=== PATIENT | male | born 1960 | race Caucasian/White ===

== ENCOUNTER 2021-04-05 17:36 | Emergency (ER) | payer OTHER ==
[~2021-04-05] VITALS: Ht 175.3 cm; Wt 86.6 kg
[2021-04-05 19:02] LABS: ABSOLUTE BASOPHILS 0.1 thou/uL (0.0-0.2); ABSOLUTE EOSINOPHILS 0.5 thou/uL (0.0-0.7); ABSOLUTE LYMPHOCYTES 1.7 thou/uL (0.8-5.3); ABSOLUTE MONOCYTES 0.5 thou/uL (0.0-1.2); ABSOLUTE NEUTROPHILS 4.8 thou/uL (1.6-8.1); BASOPHILS 1.3 %; EOSINOPHILS 6.8 %; HEMATOCRIT 41.7 % (42.0-52.0); HEMOGLOBIN 14.4 gm/dL (14.0-18.0); LYMPHOCYTES 22.4 %; MCH 29.8 pg (26.0-34.0); MCHC 34.5 g/dL (28.0-37.0); MCV 86.4 fL (80.0-100.0); MONOCYTES 6.4 %; MPV 8.1 fl. (7.2-11.1); NUCLEATED RBCS 0 /100WBC; PLATELET COUNT* 196 thou/uL (150-400); POLYS 63.1 %; RBC 4.83 mil/uL (4.50-6.00); RDW-CV 14.3 % (10.5-14.5); WBC 7.7 thou/uL (4.0-11.0)
[2021-04-05 19:13] LABS: CALCIUM 8.2 mg/dL (8.5-10.1); CREATININE 1.9 mg/dL (0.6-1.3); POTASSIUM 3.9 mmol/L (3.5-5.1)
[2021-04-05 19:17] LABS: ALBUMIN 3.4 g/dL (3.4-5.0); TOTAL BILIRUBIN 1.3 mg/dL (<0.1-1.0); TOTAL PROTEIN 6.5 g/dL (6.4-8.2)
[2021-04-05 20:20] VITALS: BP 129/68
--- NOTE | 2021-04-06 14:01 | EKG ---
[place] [address] ELECTROCARDIOGRAM REPORT Name: ADITYAKANA Espinal Room: [facility]#: [id number] Admission: 04/05/21 Attend Phys: Discharge: 04/05/21 Date of : 62 Date of Service: 04/05/211911 Report #: [id number] THIS REPORT FOR: //name// [facility] ED Test Date: 2021-04-05 Test Time: 19:12:53 Pat Name: KANA BURGESS Department: Room: Gender: Drop Board Man: TBALONDRA : 1960 Requested By: Jessica Coe Order Number: [id number] MD: Bigg Conn Measurements Intervals [place] Rate: 74 P: [place]: QRS: 36 QRSD: 143 T: 186 QT: 433 QTc: 481 Interpretive Statements Atrial fibrillation Ventricular bigeminy Left bundle branch block No previous ECG available for comparison Electronically Signed On 04-06-2021 14:01:37 CDT by Bigg Conn [email or web address] <ELECTRONICALLY SIGNED> By: Bigg Conn MD, [facility] 04/06/21 1401 11 11 Bigg Conn MD, [facility] /EPI
== END 2021-04-05 20:20 | disposition home or self-care (01) ==
LOC: M.ERS 17:36
PROVIDERS: Nurse Practitioner Family
DX: I74.09 Other arterial embolism and thrombosis of abdominal aorta (principal); Z20.822 Contact with and (suspected) exposure to COVID-19

== ENCOUNTER → 2021-04-05 | Outpatient (CLI) | payer OTHER ==
[2021-04-05 14:12] LABS: CREATININE 1.9 mg/dL (0.6-1.3)
== END ==
LOC: M.LAB 13:48
PROVIDERS: ATTEND Family Medicine
DX: K42.9 Umbilical hernia without obstruction or gangrene (principal); K21.9 Gastro-esophageal reflux disease without esophagitis; R10.84 Generalized abdominal pain; I70.0 Atherosclerosis of aorta; R19.7 Diarrhea, unspecified; I10 Essential (primary) hypertension; J44.9 Chronic obstructive pulmonary disease, unspecified; I25.10 Atherosclerotic heart disease of native coronary artery without angina pectoris; E11.9 Type 2 diabetes mellitus without complications; Z79.4 Long term (current) use of insulin